=== PATIENT | female | born 1950 | race Caucasian/White ===

== ENCOUNTER 2023-06-02 13:30 | Inpatient (IN) | payer MEDICARE ==
[~2023-06-02] VITALS: Ht 167.6 cm; Wt 108.9 kg
[~2023-06-02 13:30] MED LIST: ASPIRIN81 M3 PO; ATENOLOL50 MG PO; CALCIUM500 M3 PO; CYMBALTA30 MG PO; DEXAMETHASONE SOD PHOS 10 MG/1 ML VIAL IV ONE; FERROUS SULFAT325 MG PO; GABAPENTIN300 MG PO; K-DUR20 ME2 PO; LEVAQUIN500 MG PO; METHADONE PO; MULTI-VITAMIN1 EAC4 PO; PANTOPRAZOLE SO40 MG PO; REQUIP1 MG PO; ROBAXIN750 MG PO; SPIRIVA HANDIH18 MCG INH; Z.0.AMARYL4 MG PO; Z.0.ATENOLOL50 MG PO; Z.0.ATIVAN0.5 MG PO; Z.0.DILAUDID4 MG PO; Z.0.DIOVAN160 MG PO; Z.0.GABAPENTIN300 MG PO; Z.0.LASIX20 MG PO; Z.0.LASIX40 MG PO; Z.0.LOPID600 MG PO; Z.0.NORCO 10-325 T1 PO; Z.0.PAXIL40 MG PO; Z.0.PROTONIX40 MG PO; Z.0.VENTOLIN HFA18 G IH; Z.2.METFORMIN HCL500 PO; [UNRECOGNIZED DRUG - OTHER] PO
[2023-06-02 14:17] LABS: BASOPHILS # (AUTO) 0.1 (0.0-0.1); BASOPHILS % 0.6 % (0.0-1.0); EOSINOPHILS # (AUTO) 0.6 (0.0-0.4); EOSINOPHILS % 7.5 % (0.0-6.0); HEMATOCRIT 43.7 % (34.2-44.1); HEMOGLOBIN 12.5 g/dL (12.0-16.0); LYMPHOCYTES # (AUTO) 1.1 (1.0-3.2); LYMPHOCYTES % 12.4 % (18.0-39.1); MEAN CORPUSCULAR HEMOGLOBIN 24.3 pg (28-32); MEAN CORPUSCULAR HGB CONC 28.6 g/dL (31-35); MONOCYTES # (AUTO) 0.8 (0.2-0.8); MONOCYTES % 9.6 % (4.4-11.3); NEUTROPHILS # (AUTO) 5.9 (2.1-6.9); NEUTROPHILS % 69.4 % (38.7-80.0); PLATELET COUNT 159 x10e3/uL (140-360); RED BLOOD COUNT 5.14 x10e6/uL (3.6-5.1); RED CELL DISTRIBUTION WIDTH 19.5 % (11.7-14.4)
[2023-06-02] MEDS: IPRATROPIUM BROMIDE 0.02% 2.5 ML NEB NEB ONE (14:21)
[2023-06-02] MEDS: ALBUTEROL SULF 0.083% NEB SOLN 3 ML NEB NEB STA (14:21)
[2023-06-02 14:22] VITALS: PULSE 78; RESP 18; O2SAT 96
[2023-06-02 14:31] LABS: ALBUMIN 2.4 g/dL (3.5-5.0); ALBUMIN/GLOBULIN RATIO 0.6 (0.8-2.0); ANION GAP 15.1 mmol/L (8-16); BILIRUBIN,TOTAL 0.4 mg/dL (0.2-1.2); CALCIUM 8.4 mg/dL (8.4-10.2); CREATININE, SERUM 1.04 mg/dL (0.57-1.11); POTASSIUM 4.1 mmol/L (3.5-5.1); TOTAL PROTEIN 6.1 g/dL (6.5-8.1)
[2023-06-02 14:37] LABS: TROPONIN I 0.008 ng/mL (0-0.300)
[2023-06-02] MEDS: FUROSEMIDE INJ 10 MG/ML 4 ML VIAL IV ONE (15:10)
[2023-06-02] MEDS ORDERED: FUROSEMIDE INJ 10 MG/ML 4 ML VIAL ONE (15:12)
[2023-06-02] MEDS ORDERED: DEXTROSE 50% SYRINGE 50 ML IV PRN (16:15)
[2023-06-02] MEDS ORDERED: ALBUTEROL SULF 0.083% NEB SOLN 3 ML NEB NEB PRN (16:15)
[2023-06-02 16:41] VITALS: BP 136/64; PULSE 75; RESP 19; TEMP 98.2; O2SAT 94
[2023-06-02] MEDS: INSULIN REGULAR, HUMAN 100 UNIT/1 ML SQ SCH (17:44)
[2023-06-02 18:40] VITALS: BP 136/64; PULSE 75; RESP 19; TEMP 98.2; O2SAT 94
[2023-06-02 20:00] VITALS: BP 117/71; PULSE 78; RESP 20; TEMP 97.7; O2SAT 97
[2023-06-02 21:00] VITALS: BP 117/71; PULSE 78; RESP 20; TEMP 97.7; O2SAT 97
[2023-06-02] MEDS ORDERED: HYDROCODONE/APAP 10MG-325MG TAB ONE (22:35)
[2023-06-02] MEDS ORDERED: GABAPENTIN 300 MG CAP ONE (22:35)
[2023-06-02] MEDS ORDERED: METHOCARBAMOL 750 MG TAB ONE (22:36)
[2023-06-02] MEDS: METHOCARBAMOL 750 MG TAB PO SCH (22:39)
[2023-06-02] MEDS: HYDROCODONE/APAP 10MG-325MG TAB PO PRN (22:39)
[2023-06-02] MEDS: GABAPENTIN 300 MG CAP PO SCH (22:39)
[2023-06-03] VITALS (12 sets, daily range): BP systolic 112–135; BP diastolic 56–72; PULSE 65–88; RESP 18–20; TEMP 97.6–98.6; O2SAT 91–100
[2023-06-03] MEDS: TIOTROPIUM 18 MCG INH POWDER INH SCH (06:00)
[2023-06-03 07:11] LABS: BASOPHILS % 0.2 % (0.0-1.0); HEMATOCRIT 41.9 % (34.2-44.1); HEMOGLOBIN 12.1 g/dL (12.0-16.0); LYMPHOCYTES # (AUTO) 0.7 (1.0-3.2); LYMPHOCYTES % 11.1 % (18.0-39.1); MEAN CORPUSCULAR HEMOGLOBIN 24.1 pg (28-32); MEAN CORPUSCULAR HGB CONC 28.9 g/dL (31-35); MEAN CORPUSCULAR VOLUME 83.3 fL (81-99); MONOCYTES # (AUTO) 0.1 (0.2-0.8); NEUTROPHILS # (AUTO) 5.3 (2.1-6.9); NEUTROPHILS % 86.7 % (38.7-80.0); PLATELET COUNT 153 x10e3/uL (140-360); RED BLOOD COUNT 5.03 x10e6/uL (3.6-5.1); RED CELL DISTRIBUTION WIDTH 18.9 % (11.7-14.4); WHITE BLOOD COUNT 6.11 x10e3/uL (4.8-10.8)
[2023-06-03 07:53] LABS: ANION GAP 15.4 mmol/L (8-16); CALCIUM 8.1 mg/dL (8.4-10.2); CREATININE, SERUM 0.87 mg/dL (0.57-1.11); POTASSIUM 4.4 mmol/L (3.5-5.1)
[2023-06-03] MEDS ORDERED: METHOCARBAMOL 500 MG TAB ONE (08:18)
[2023-06-03] MEDS ORDERED: GABAPENTIN 300 MG CAP ONE ×3 (08:18→21:44)
[2023-06-03] MEDS ORDERED: PANTOPRAZOLE SOD 40 MG TABEC ONE (08:18)
[2023-06-03] MEDS ORDERED: FUROSEMIDE INJ 10 MG/ML 4 ML VIAL ONE (08:18)
[2023-06-03] MEDS ORDERED: METHYLPREDNISOLONE SOD SUCC 40 MG/ML VIAL 1ML ONE (08:19)
[2023-06-03] MEDS: METHYLPREDNISOLONE SOD SUCC 40 MG/ML VIAL 1ML IV SCH (09:25)
[2023-06-03] MEDS: FUROSEMIDE INJ 10 MG/ML 4 ML VIAL IV SCH (09:25)
[2023-06-03] MEDS: PANTOPRAZOLE SOD 40 MG TABEC PO SCH (09:26)
[2023-06-03] MEDS ORDERED: HYDROCODONE/APAP 10MG-325MG TAB ONE ×2 (09:27→17:00)
[2023-06-03] MEDS ORDERED: SALINE 0.65% NAS SOLN 1 SPRAY BTL PRN (10:30)
[2023-06-03] MEDS ORDERED: ALBUTEROL/IPRATROPIUM 3 ML NEB NEB PRN (10:30)
[2023-06-03] MEDS ORDERED: DEXTROSE 50% SYRINGE 50 ML IV PRN (10:30)
[2023-06-03] MEDS ORDERED: LEVOFLOXACIN 750MG/D5W 150ML 150 ML IV ONE (12:43)
[2023-06-03] MEDS: LEVOFLOXACIN 750MG/D5W 150ML 150 ML IV SCH (12:46)
[2023-06-03] MEDS: INSULIN LISPRO 100 UNIT/1 ML 3ML VIAL SQ SCH (12:49)
[2023-06-03] MEDS: ALBUTEROL/IPRATROPIUM 3 ML NEB NEB SCH (13:49)
[2023-06-03] MEDS ORDERED: ALBUTEROL/IPRATROPIUM 3 ML NEB ONE (13:57)
[2023-06-03] MEDS: METOPROLOL TARTRATE 25 MG TAB PO SCH (17:04)
[2023-06-03] MEDS: FLUTICASONE PROPIONATE NASAL SPRAY NS SCH (17:05)
[2023-06-03] MEDS ORDERED: METOPROLOL TARTRATE 25 MG TAB ONE ×2 (17:06→21:44)
[2023-06-03] MEDS: DOXYCYCLINE HYCLATE TABLET 100 MG TAB PO SCH (17:06)
[2023-06-03] MEDS: ENOXAPARIN SOD INJ 40 MG/0.4 ML SYR SC SCH (17:07)
[2023-06-03] MEDS ORDERED: ENOXAPARIN SOD INJ 40 MG/0.4 ML SYR SC ONE (17:09)
[2023-06-03] MEDS ORDERED: DOXYCYCLINE HYCLATE TABLET 100 MG TAB ONE (17:09)
[2023-06-03] MEDS: ROPINIROLE HCL 1 MG TAB PO SCH (21:00)
[2023-06-03] MEDS ORDERED: ROPINIROLE HCL 2 MG TAB ONE (21:45)
[2023-06-04] VITALS (12 sets, daily range): BP systolic 137–165; BP diastolic 63–86; PULSE 60–81; RESP 17–22; TEMP 97.7–98.6; O2SAT 92–100
[2023-06-04] MEDS ORDERED: ALBUTEROL/IPRATROPIUM 3 ML NEB ONE ×3 (00:05→12:39)
[2023-06-04] MEDS ORDERED: METOPROLOL TARTRATE 25 MG TAB ONE ×3 (05:37→19:58)
[2023-06-04] MEDS ORDERED: GABAPENTIN 300 MG CAP ONE ×4 (07:48→19:58)
[2023-06-04] MEDS ORDERED: FUROSEMIDE INJ 10 MG/ML 4 ML VIAL ONE (07:49)
[2023-06-04] MEDS ORDERED: DULOXETINE HCL 30 MG DELAYED RELEASE ONE (07:49)
[2023-06-04] MEDS ORDERED: METHYLPREDNISOLONE SOD SUCC 40 MG/ML VIAL 1ML ONE (07:49)
[2023-06-04] MEDS ORDERED: PANTOPRAZOLE SOD 40 MG TABEC ONE (07:49)
[2023-06-04] MEDS ORDERED: DOXYCYCLINE HYCLATE TABLET 100 MG TAB ONE ×2 (07:50→17:25)
[2023-06-04] MEDS ORDERED: LEVOFLOXACIN 750MG/D5W 150ML 150 ML IV ONE (07:50)
[2023-06-04] MEDS ORDERED: VALSARTAN 160 MG TAB ONE (07:50)
[2023-06-04 08:11] LABS: BASOPHILS % 0.1 % (0.0-1.0); HEMATOCRIT 43.5 % (34.2-44.1); HEMOGLOBIN 12.5 g/dL (12.0-16.0); LYMPHOCYTES # (AUTO) 0.7 (1.0-3.2); LYMPHOCYTES % 7.1 % (18.0-39.1); MEAN CORPUSCULAR HGB CONC 28.7 g/dL (31-35); MEAN CORPUSCULAR VOLUME 83.7 fL (81-99); MONOCYTES # (AUTO) 0.3 (0.2-0.8); MONOCYTES % 3.5 % (4.4-11.3); NEUTROPHILS # (AUTO) 8.6 (2.1-6.9); NEUTROPHILS % 88.9 % (38.7-80.0); PLATELET COUNT 177 x10e3/uL (140-360); RED CELL DISTRIBUTION WIDTH 19.2 % (11.7-14.4); WHITE BLOOD COUNT 9.66 x10e3/uL (4.8-10.8)
[2023-06-04 08:27] LABS: ANION GAP 17.5 mmol/L (8-16); CALCIUM 8.6 mg/dL (8.4-10.2); CREATININE, SERUM 0.98 mg/dL (0.57-1.11); POTASSIUM 4.5 mmol/L (3.5-5.1)
[2023-06-04 08:29] LABS: MAGNESIUM 1.7 MG/DL (1.3-2.1); PHOSPHORUS 3.2 MG/DL (2.3-4.7)
[2023-06-04] MEDS ORDERED: HYDROCODONE/APAP 10MG-325MG TAB ONE ×3 (08:42→21:16)
[2023-06-04] MEDS: VALSARTAN 160 MG TAB PO SCH (08:44)
[2023-06-04] MEDS: DULOXETINE HCL 30 MG DELAYED RELEASE PO SCH (08:46)
[2023-06-04 08:54] LABS: THYROID STIMULATING HORMONE 1.877 uIU/mL (0.350-4.940)
[2023-06-04] MEDS ORDERED: MAGNESIUM SULFATE 2GM/50ML IV ONE (10:45)
[2023-06-04] MEDS ORDERED: CELECOXIB 200 MG CAP ONE ×2 (11:20→17:24)
[2023-06-04] MEDS ORDERED: MAGNESIUM SULFATE 2GM/50ML 50 ML IV ONE (11:21)
[2023-06-04] MEDS ORDERED: SODIUM CHLORIDE 0.9% 250ML 250 ML ONE (11:21)
[2023-06-04] MEDS: MAGNESIUM SULFATE 2GM/50ML 50 ML IV ONE (11:22)
[2023-06-04] MEDS: CELECOXIB 200 MG CAP PO ONE (11:22)
[2023-06-04] MEDS: GABAPENTIN 300 MG CAP PO SCH (11:22)
[2023-06-04] MEDS: HYDROCODONE/APAP 10MG-325MG TAB PO PRN (14:58)
[2023-06-04] MEDS ORDERED: ENOXAPARIN SOD INJ 40 MG/0.4 ML SYR SC ONE (17:24)
[2023-06-04] MEDS: CELECOXIB 200 MG CAP PO SCH (17:28)
[2023-06-04] MEDS ORDERED: ROPINIROLE HCL 2 MG TAB ONE (19:59)
[2023-06-05] VITALS (11 sets, daily range): BP systolic 143–160; BP diastolic 61–79; PULSE 54–109; RESP 18–20; TEMP 97–98.1; O2SAT 94–100
[2023-06-05] MEDS ORDERED: ALBUTEROL/IPRATROPIUM 3 ML NEB ONE ×4 (01:34→19:14)
[2023-06-05] MEDS ORDERED: HYDROCODONE/APAP 10MG-325MG TAB ONE ×5 (03:19→22:49)
[2023-06-05 05:37] LABS: BASOPHILS % 0.1 % (0.0-1.0); HEMATOCRIT 44.9 % (34.2-44.1); LYMPHOCYTES # (AUTO) 0.9 (1.0-3.2); LYMPHOCYTES % 7.8 % (18.0-39.1); MEAN CORPUSCULAR HEMOGLOBIN 24.1 pg (28-32); MEAN CORPUSCULAR VOLUME 83.3 fL (81-99); MONOCYTES # (AUTO) 0.4 (0.2-0.8); MONOCYTES % 3.3 % (4.4-11.3); NEUTROPHILS # (AUTO) 9.6 (2.1-6.9); NEUTROPHILS % 88.4 % (38.7-80.0); PLATELET COUNT 143 x10e3/uL (140-360); RED BLOOD COUNT 5.39 x10e6/uL (3.6-5.1); RED CELL DISTRIBUTION WIDTH 19.1 % (11.7-14.4); WHITE BLOOD COUNT 10.86 x10e3/uL (4.8-10.8)
[2023-06-05] MEDS ORDERED: METOPROLOL TARTRATE 25 MG TAB ONE ×4 (05:56→20:29)
[2023-06-05 06:18] LABS: ANION GAP 14.9 mmol/L (8-16); CALCIUM 8.6 mg/dL (8.4-10.2); CREATININE, SERUM 1.27 mg/dL (0.57-1.11); POTASSIUM 4.9 mmol/L (3.5-5.1)
[2023-06-05] MEDS ORDERED: GABAPENTIN 300 MG CAP ONE ×5 (08:54→23:31)
[2023-06-05] MEDS ORDERED: DULOXETINE HCL 30 MG DELAYED RELEASE ONE ×2 (08:55→10:45)
[2023-06-05] MEDS ORDERED: FUROSEMIDE INJ 10 MG/ML 4 ML VIAL ONE ×2 (08:55→10:45)
[2023-06-05] MEDS ORDERED: PANTOPRAZOLE SOD 40 MG TABEC ONE ×2 (08:55→10:45)
[2023-06-05] MEDS ORDERED: CELECOXIB 200 MG CAP ONE ×3 (08:55→16:30)
[2023-06-05] MEDS ORDERED: DOXYCYCLINE HYCLATE TABLET 100 MG TAB ONE ×3 (08:56→16:30)
[2023-06-05] MEDS ORDERED: METHYLPREDNISOLONE SOD SUCC 40 MG/ML VIAL 1ML ONE ×2 (08:56→10:45)
[2023-06-05] MEDS ORDERED: VALSARTAN 160 MG TAB ONE ×2 (08:56→10:45)
[2023-06-05] MEDS ORDERED: LEVOFLOXACIN 750MG/D5W 150ML 150 ML IV ONE (09:44)
[2023-06-05 10:36] LABS: ANISOCYTOSIS MODERATE; PLATELET ESTIMATE ADEQUATE; PLATELET MORPHOLOGY COMMENT NORMAL; RBC MORPHOLOGY COMMENT ABNORMAL
[2023-06-05 10:37] LABS: HYPOCHROMASIA MODERATE; POLYCHROMASIA FEW
[2023-06-05] MEDS ORDERED: ROPINIROLE HCL 2 MG TAB ONE ×2 (10:45→23:30)
[2023-06-05] MEDS ORDERED: ENOXAPARIN SOD INJ 40 MG/0.4 ML SYR SC ONE ×2 (10:45→16:30)
[2023-06-05] MEDS ORDERED: LEVOFLOXACIN 750MG/D5W 150ML IV ONE (10:45)
[2023-06-05] MEDS ORDERED: ROPINIROLE HCL 0.25 MG TAB ONE (20:29)
[2023-06-05] MEDS ORDERED: METOPROLOL SUCCINATE 25 MG TAB XL ONE (23:29)
[2023-06-06] VITALS (7 sets, daily range): BP systolic 151–160; BP diastolic 62–67; PULSE 50–99; RESP 16–20; TEMP 97.4–98; O2SAT 92–99
[2023-06-06] MEDS ORDERED: METOPROLOL TARTRATE 25 MG TAB ONE ×2 (05:01→09:37)
[2023-06-06] MEDS ORDERED: HYDROCODONE/APAP 10MG-325MG TAB ONE ×3 (05:27→11:40)
[2023-06-06 05:34] LABS: HEMATOCRIT 41.9 % (34.2-44.1); HEMOGLOBIN 12.3 g/dL (12.0-16.0); LYMPHOCYTES # (AUTO) 0.6 (1.0-3.2); LYMPHOCYTES % 7.4 % (18.0-39.1); MEAN CORPUSCULAR HEMOGLOBIN 24.1 pg (28-32); MEAN CORPUSCULAR HGB CONC 29.4 g/dL (31-35); MEAN CORPUSCULAR VOLUME 82.2 fL (81-99); MONOCYTES # (AUTO) 0.4 (0.2-0.8); MONOCYTES % 5.2 % (4.4-11.3); NEUTROPHILS # (AUTO) 6.8 (2.1-6.9); NEUTROPHILS % 87.1 % (38.7-80.0); PLATELET COUNT 143 x10e3/uL (140-360); RED CELL DISTRIBUTION WIDTH 18.2 % (11.7-14.4); WHITE BLOOD COUNT 7.85 x10e3/uL (4.8-10.8)
[2023-06-06 05:53] LABS: ALBUMIN 2.6 g/dL (3.5-5.0); ALBUMIN/GLOBULIN RATIO 0.8 (0.8-2.0); ANION GAP 14.5 mmol/L (8-16); BILIRUBIN,TOTAL 0.4 mg/dL (0.2-1.2); CALCIUM 8.7 mg/dL (8.4-10.2); CREATININE, SERUM 1.14 mg/dL (0.57-1.11); POTASSIUM 4.5 mmol/L (3.5-5.1); TOTAL PROTEIN 5.9 g/dL (6.5-8.1)
[2023-06-06] MEDS ORDERED: ALBUTEROL/IPRATROPIUM 3 ML NEB ONE ×2 (07:06→09:37)
[2023-06-06] MEDS ORDERED: GABAPENTIN 300 MG CAP ONE ×2 (08:25→09:37)
[2023-06-06] MEDS ORDERED: CELECOXIB 200 MG CAP ONE ×2 (08:25→09:37)
[2023-06-06] MEDS ORDERED: FUROSEMIDE INJ 10 MG/ML 4 ML VIAL ONE ×2 (08:26→09:37)
[2023-06-06] MEDS ORDERED: METHYLPREDNISOLONE SOD SUCC 40 MG/ML VIAL 1ML ONE ×2 (08:26→09:37)
[2023-06-06] MEDS ORDERED: DULOXETINE HCL 30 MG DELAYED RELEASE ONE ×2 (08:27→09:37)
[2023-06-06] MEDS ORDERED: VALSARTAN 160 MG TAB ONE ×2 (08:28→09:37)
[2023-06-06] MEDS ORDERED: DOXYCYCLINE HYCLATE TABLET 100 MG TAB ONE ×2 (08:29→09:37)
[2023-06-06] MEDS ORDERED: LEVOFLOXACIN 750MG/D5W 150ML 150 ML IV ONE (08:29)
[2023-06-06] MEDS ORDERED: PANTOPRAZOLE SOD 40 MG TABEC ONE ×2 (08:29→09:37)
[2023-06-06] MEDS ORDERED: INSULIN LISPRO 100 UNIT/1 ML 3ML VIAL SQ ONE ×2 (09:12→09:37)
[2023-06-06] MEDS ORDERED: LEVOFLOXACIN 750MG/D5W 150ML IV ONE (09:37)
[2023-06-06] MEDS ORDERED: METOPROLOL SUCCINATE 25 MG TAB XL ONE (09:37)
[2023-06-06] MEDS ORDERED: ROPINIROLE HCL 0.25 MG TAB ONE (09:37)
[2023-06-06] MEDS ORDERED: ENOXAPARIN SOD INJ 40 MG/0.4 ML SYR SC ONE (09:37)
[2023-06-06] MEDS ORDERED: ROPINIROLE HCL 2 MG TAB ONE (09:37)
[2023-06-07] MEDS ORDERED: LEVOFLOXACIN 250 MG TAB PO SCH (09:00)
== END 2023-06-06 12:39 | disposition home health service (06) | DRG 291 ==
LOC: ER 13:39 → ERHOLD 14:56 → MED/SURG3 16:24
PROVIDERS: ADMIT Internal Medicine; ATTEND Internal Medicine
DX: I11.0 Hypertensive heart disease with heart failure (principal); I50.33 Acute on chronic diastolic (congestive) heart failure; J18.1 Lobar pneumonia, unspecified organism; J96.01 Acute respiratory failure with hypoxia; J44.1 Chronic obstructive pulmonary disease with (acute) exacerbation; J44.0 Chronic obstructive pulmonary disease with (acute) lower respiratory infection; J43.9 Emphysema, unspecified; Z86.73 Personal history of transient ischemic attack (TIA), and cerebral infarction without residual deficits; E78.5 Hyperlipidemia, unspecified; M54.9 Dorsalgia, unspecified; G89.4 Chronic pain syndrome; Z88.1 Allergy status to other antibiotic agents; Z88.5 Allergy status to narcotic agent; Z88.0 Allergy status to penicillin; Z91.041 Radiographic dye allergy status; Z79.84 Long term (current) use of oral hypoglycemic drugs; Z79.891 Long term (current) use of opiate analgesic; Z79.51 Long term (current) use of inhaled steroids; Z11.52 Encounter for screening for COVID-19; I73.9 Peripheral vascular disease, unspecified; Z90.49 Acquired absence of other specified parts of digestive tract; E11.51 Type 2 diabetes mellitus with diabetic peripheral angiopathy without gangrene; Z85.42 Personal history of malignant neoplasm of other parts of uterus; Z92.3 Personal history of irradiation; I89.0 Lymphedema, not elsewhere classified; D64.9 Anemia, unspecified; R62.7 Adult failure to thrive; Z68.38 Body mass index [BMI] 38.0-38.9, adult; E66.01 Morbid (severe) obesity due to excess calories; Z87.891 Personal history of nicotine dependence; Z91.199 Patient's noncompliance with other medical treatment and regimen due to unspecified reason
CPT/HCPCS: 36415; 71045; 71250; 80048; 80053; 82948; 83036; 83735; 83880; 84100; 84443; 84484; 85025; 93005; 93306; 94640; 94664; 94760; 94799; 96372; 99252; 99284; J1100; J1650; J1940; J2919; J3475; J7050; U0002